=== PATIENT | female | born 1990 | race Caucasian/White ===

== ENCOUNTER 2025-02-09 19:41 | Emergency (ER) | payer SELFPAY ==
[~2025-02-09] VITALS: Ht 160 cm; Wt 63.0 kg
--- NOTE | 2025-02-09 19:53 | ERN ---
ED Note History of Present Illness Stated Complaint: C/O ABD PAIN WITH N X V, DIARRHEA,DIZZINESS Chief Complaint: Abdominal Pain Time Seen by MD: 19:45 Time Seen by Midlevel: 19:45 Dictation: The patient is a 34-year-old female with a history of cholecystectomy, who presents to the emergency department with complaints of epigastric abdominal pain onset 2:00 p.m. associated with nausea , nonbloody vomiting nonbloody diarrhea. Patient denies any fevers. Allergies: Coded Allergies: cefaclor (Unverified Allergy, Unknown, 02/09/25) Past Medical History Past Medical History: No Pertinent History Surgical History: Cholecystectomy, LMP: Dec 27, 2024 RN Note Reviewed/Agreed w/PFSH: Yes Review of System Dictation Constitutional: Negative for fever,chills, and weight loss Eyes: Negative for injury, pain,redness, and discharge ENT: Negative for injury,pain or swelling Cardiovascular: Negative for chest pain, palpitations, and edema Respiratory: Negative for shortness of breath, cough, and wheezing, Abdomen/GI: Negative for constipation positive for abdominal pain, nausea, vomiting, diarrhea Back: Negative for injury and pain : Negative for injury, bleeding and discharge MS/Extremity: Negative for injury and deformity Skin: Negative for rash, and discoloration Neuro: Negative for headache, weakness, numbness, tingling, and seizure Psych: Negative for suicide ideation, homicidal ideation, and hallucinations Initial Vital Sign VS Vital Signs Date Time Temp Pulse Resp B/P (MAP) Pulse Ox O2 Delivery O2 Flow Rate FiO2 02/09/25 19:44 98.2 79 20 117/84 97 Room Air Physical Exam Dictation Vital Signs reviewed General Appearance: Alert, oriented x 3, no acute distress, well developed, nourished. Head and Face: non-traumatic. Eyes: PERRL, pink conjunctivas, eyelid no trauma, anterior chamber with arcus senilis. Ears: Pinnas intact and no signs of trauma or erythema ear canals clear and no discharge TM no erythema Nose: No discharge, no bleeding. Oropharynx: Mouth normal, tongue pink. pharynx clear,no erythema, tonsils no exudates, no abscesses noted, mucous membrane moist Neck: Supple, non-tender, no thyromegaly, no masses, no JVD, no bruits Breast:Deferred Chest:No tenderness, no crepitus, no paradoxical movement, no retractions Lungs:Clear, well-ventilated, symmetric, no rales, no wheezing, no rhonchi, no stridor, good breath sounds bilaterally Heart: Regular rate, regular rhythm, no murmur, no gallops Vascular: no peripheral edema, Abdomen: Soft, positive bowel sounds, nondistended, no guarding, Epigastric tenderness,, no rebound, no masses no hepatomegaly, no splenomegaly, no Ortiz's sign, no hernias. Rectal: Deferred Genital: Deferred Neurological: Normal speech, motor function intact, sensory function intact Musculoskeletal: Neck nontender, full range of motion, back nontender, full range of motion, Extremities: nontender, full range of motion Skin: Color pink, dry, no turgor, no rash, no lacerations, no abrasions, no contusions. Lymphatic: Deferred Results (Laboratory/Radiology) Laboratory/Radiology Laboratory Tests Test 02/09/25 20:02 02/09/25 20:17 Urine Color YELLOW (YELLOW) Urine Appearance CLEAR (CLEAR) Urine pH 6.5 (5.0-8.0) Urine Specific [place] 1.029 (1.001-1.031) Urine Protein 50 mg/dL (NEGATIVE) H Urine Glucose (UA) NEGATIVE mg/dL (NEGATIVE) Urine Ketones 10 mg/dL (NEGATIVE) H Urine Occult Blood NEGATIVE (NEGATIVE) Urine Nitrate NEGATIVE (NEGATIVE) Urine Bilirubin NEGATIVE mg/dL (NEGATIVE) Urine Urobilinogen 0.2 mg/dL (0.2-1.0) Urine Leukocyte Esterase NEGATIVE Nikki/uL Urine RBC 0-1 /HPF (0-1) Urine WBC 2-5 /HPF (0-1) H Urine Squamous Epithelial Cells FEW /HPF (0-2) Urine Bacteria RARE /HPF (None Seen) Urine HCG, Qualitative NEGATIVE (NEGATIVE) White Blood Count 9.4 K/uL (4.8-10.8) Red Blood Count 5.76 MIL/uL (4.00-5.50) H Hemoglobin 17.1 g/dL (12.0-16.0) H Hematocrit 49.9 % (36-48) H Mean Corpuscular Volume 86.6 fL (79-99) Mean Corpuscular Hemoglobin 29.7 pg (27.0-33.0) Mean Corpuscular Hemoglobin Concent 34.3 g/dL (32.0-36.0) Red Cell Distribution Width 12.7 % (11.0-15.5) Platelet Count 203 K/uL (130-400) Mean Platelet Volume 10.6 fL (7.5-10.5) H Immature Granulocyte % (Auto) 0.3 % (0-1) Neutrophils (%) (Auto) 77.1 % (40.0-77.0) H Lymphocytes (%) (Auto) 17.2 % (21.0-51.0) L Monocytes (%) (Auto) 4.7 % (3.0-13.0) Eosinophils (%) (Auto) 0.5 % (0.0-8.0) Basophils (%) (Auto) 0.2 % (0.0-5.0) Neutrophils # (Auto) 7.2 K/uL (1.8-7.7) Lymphocytes # (Auto) 1.6 K/uL (1.0-4.8) Monocytes # (Auto) 0.4 K/uL (0.1-1.0) Eosinophils # (Auto) 0.05 K/uL (0.00-0.70) Basophils # (Auto) 0.02 K/uL (0.00-0.20) Absolute Immature Granulocyte (auto 0.03 K/uL (0-1) Nucleated Red Blood Cells 0.0 % (0.0-0.19) Sodium Level 139 mmol/L (136-145) Potassium Level 3.3 mmol/L (3.5-5.1) L Chloride Level 102 mmol/L (101-111) Carbon Dioxide Level 25 mmol/L (21-32) Blood Urea Nitrogen 11 mg/dL (7-18) Creatinine 0.7 mg/dL (0.5-1.0) Glomerular Filtration Rate Calc 118 mL/min (>90) Random Glucose 102 mg/dL (70-105) Total Calcium 9.5 mg/dL (8.5-10.1) Total Bilirubin 1.1 mg/dL (0.2-1.0) H Direct Bilirubin 0.2 mg/dL (0.0-0.3) Aspartate Amino Transf (AST/SGOT) 20 U/L (10-37) Alanine Aminotransferase (ALT/SGPT) 32 U/L (12-78) Alkaline Phosphatase 59 U/L (50-136) Total Protein 8.6 g/dL (6.0-8.3) H Albumin 4.5 g/dL (3.5-5.0) Lipase 61 U/L (16-77) REASON: epigastric pain ORDERING PHYSICIAN: RAJWINDER LEE PROCEDURE: ABD PEL W - CT ABDOMEN/PELVIS W/CONTRAST CT ABDOMEN WITH CONTRAST. CT PELVIS WITH CONTRAST INDICATION: Epigastric abdominal pain TECHNIQUE: Routine transaxial images using 5 mm slice thickness were obtained after the intravenous infusion of 75 mL of Omnipaque 350 without adverse effects. Oral contrast was not administered. Rectal contrast was not administered. Coronal and sagittal reformatted images acquired for interpretation. CT was performed with one or more of the following dose reduction techniques: Automated exposure control, adjustment of the mA and/or kV according to patient size, or use of iterative reconstruction technique. COMPARISON: None FINDINGS: ABDOMEN: Heart size is normal. Visible lung bases are clear. The liver is normal in size and smooth in contour without lesions or biliary duct dilation. The spleen is normal in size without lesions. The gallbladder his absent. The pancreas appears normal without pancreatic duct dilation. The adrenal glands appear normal. Both kidneys appear unremarkable. Cortical nephrograms are symmetric and normal in appearance bilaterally. No evidence for intra-abdominal free air or organized fluid collection. No retrocrural, intraabdominal, or retroperitoneal lymphadenopathy identified. No aortic aneurysmal dilation or dissection identified. PELVIS: No evidence for free air or organized pelvic fluid collection. No significant pelvic adenopathy detected. Extensive small and large bowel liquid contents. Terminal ileum appears normal. The appendix appears normal. The urinary bladder appears unremarkable. Visible osseous structures are intact. IMPRESSION: Probable mild enterocolitis with extensive small and large bowel liquid contents. Labs Reviewed?: Yes ED Course ED Course Orders Procedure Category Date Status Time Cbc With Differential LAB 02/09/25 Complete 19:49 ,Urine Test LAB 02/09/25 Complete 19:49 Urinalysis Profile LAB 02/09/25 Complete 19:49 0.9%Nacl 1000ml (Ns PHA 02/09/25 Complete 1000ml) 20:00 Morphine 4mg Syg PHA 02/09/25 Complete (Morphine 4mg Syg) 20:00 Ondansetron 4mg Inj PHA 02/09/25 Complete (Zofran 4mg Inj) 20:00 Pantoprazole 40mg Inj PHA 02/09/25 Complete (Protonix 40mg Inj 20:00 Lipase LAB 02/09/25 Complete 19:49 Basic Metabolic Panel LAB 02/09/25 Complete 19:49 Hepatic Function Panel LAB 02/09/25 Complete 19:49 Hydromorphone 0.5mg PHA 02/09/25 Complete Syg (Dilaudid 0.5mg 21:00 Ct Abdomen/Pelvis CT 02/09/25 Resulted W/Contrast 20:41 Iohexol (Omnipaque) PHA 02/09/25 Complete 21:03 Dicyclomine Hcl PHA 02/09/25 Complete (Bentyl 20mg Inj) 21:30 Potassium Chloride PHA 02/09/25 Transmitted 10meq Sr (K-Dur 10meq 22:00 Current Medications Medications (Trade) Dose Ordered Sig/Jovanni Route PRN Reason Start Time Stop Time Status Last Admin Dose Admin Dicyclomine HCl (Bentyl 20mg Inj) 20 mg ONCE ONCE IM 02/09/25 21:30 02/09/25 21:31 DC Hydromorphone HCl (DiLAUDid 0.5MG INJ) 0.5 mg ONCE ONCE IVP 02/09/25 21:00 02/09/25 21:01 DC 02/09/25 20:50 Iohexol (Omnipaque) 75 ml STK-MED ONCE IV 02/09/25 21:03 02/09/25 21:03 DC Morphine Sulfate (morPHINE 4MG SYG) 4 mg ONCE ONCE IVP 02/09/25 20:00 02/09/25 20:01 DC 02/09/25 20:20 Ondansetron HCl (zoFRAN 4MG INJ) 4 mg ONCE ONCE IVP 02/09/25 20:00 02/09/25 20:01 DC 02/09/25 20:20 Pantoprazole Sodium (PROTonix 40MG INJ) 40 mg ONCE ONCE IVP 02/09/25 20:00 02/09/25 20:01 DC 02/09/25 20:20 Sodium Chloride 1,000 ml @ 0 mls/hr ONCE ONCE IV 02/09/25 20:00 02/09/25 20:01 DC 02/09/25 20:21 Vital Signs Date Time Temp Pulse Resp B/P (MAP) Pulse Ox O2 Delivery O2 Flow Rate FiO2 02/09/25 19:44 98.2 79 20 117/84 97 Room Air Medical Decision Making MDM The patient is a 34-year-old female with a history of cholecystectomy, who presents to the emergency department with complaints of epigastric abdominal pain onset 2:00 p.m. associated with nausea , nonbloody vomiting nonbloody diarrhea. Patient denies any fevers. CBC showed no leukocytosis, no anemia, chemistry showed mild hypokalemia, negative lipase, negative liver enzymes. Urinalysis unremarkable. CT abdomen showed mild enterocolitis. Patient reports improving in pain with medications administration. Reports she feels better. Patient no longer vomiting. No acute distress, stable vital signs we will be discharged and follow up with PCP. Differential diagnosis: Gastroenteritis, gastritis, bowel obstruction Need for hospitalization: Patient does not meet criteria for hospitalization. There are no social concerns with this patient. DX & DISP Disposition: Discharge Departure Impression: Primary Impression: Gastroenteritis Additional Impressions: Nausea and vomiting, Abdominal pain, Diarrhea, Hypokalemia Condition: Stable Scripts Dicyclomine HCl (Bentyl) 20 Mg Tab 1 TAB PO BID for irritable bowel symptoms for 30 Days, #60 TAB 0 Refills Prov: RAJWINDER LEE EXECUTIVE ADVISOR 02/09/25 Pantoprazole Sodium (Pantoprazole Sodium) 20 Mg Tablet.dr 1 TAB PO DAILY for 30 Days, #30 TAB 0 Refills Prov: RAJWINDER LEE EXECUTIVE ADVISOR 02/09/25 Ondansetron (Ondansetron Odt) 4 Mg Tab.rapdis 4 MG PO Q6HPRN PRN for nausea, #16 TAB 0 Refills Prov: RAJWINDER LEE EXECUTIVE ADVISOR 02/09/25 Additional Instructions: Please follow up with the primary doctor in 1-2 days. If symptoms worsen please return to ER. Continue oral hydration at home. FOLLOW-UP WITH PRIMARY CARE PROVIDER IN 1 TO 2 DAYS. TAKE MEDICATIONS DIREC RUBIA HERE IN THE EMERGENCY ROOM. OKAY TO CONTINUE HOME MEDICATIONS UNLESS OTHERWISE DISCUSSED DURING YOUR VISIT IN THE EMERGENCY ROOM TODAY. RETURN TO YOUR NEAREST EMERGENCY ROOM IF SYMPTOMS WORSEN OR IF THERE IS NO IMPROVEMENT. CALL 911 IF YOU NEED IMMEDIATE ASSISTANCE. TAKE TYLENOL OR MOTRIN [id number] NEEDED AND IF NO CONTRAINDICATIONS ARE PRESENT. INCREASE ORAL HYDRATION. A WOUND CULTURE OR URINE CULTURE WAS ORDERED HERE IN THE EMERGENCY ROOM DEPARTMENT PLEASE FOLLOW-UP WITH PRIMARY CARE PROVIDER AND ADVISE THEM TO GET REPEAT PORTS FROM OUR FACILITY. IF YOU HAD ANY YOUNG WRAP/SPLINTS THAT WERE APPLIED HERE, PLEASE DO NOT REMOVE THEM UNTIL YOU SEE YOUR PRIMARY CARE OR SPECIALTY. Referrals: SELF,REFERRAL (PCP) Time of Disposition: 21:41 I have reviewed the case, and I agree with, Diagnosis and Plan RAJWINDER LEE [facility] Feb 09, 2025 19:53
[2025-02-09 20:14] LABS: APPEARANCE,URINE CLEAR (CLEAR); BILIRUBIN,URINE NEGATIVE (NEGATIVE); COLOR,URINE YELLOW (YELLOW); GLUCOSE, URINE (UA) NEGATIVE (NEGATIVE); KETONES,URINE 10 mg/dL (NEGATIVE); LEUKOCYTE ESTERASE ,URINE NEGATIVE Leu/uL (NEGATIVE); NITRATE,URINE NEGATIVE (NEGATIVE); OCCULT BLOOD,URINE NEGATIVE (NEGATIVE); PH,URINE 6.5 (5.0-8.0); PROTEIN,URINE 50 mg/dL (NEGATIVE); UROBILINOGEN,URINE 0.2 mg/dL (0.2-1.0)
[2025-02-09 20:15] LABS: ADD UA MICROSCOPIC YES
[2025-02-09 20:16] LABS: BACTERIA,URINE RARE /HPF (None Seen); HCG,QUALITATIVE URINE NEGATIVE (NEGATIVE); MUCUS,URINE FEW LPF (None Seen); RBC,URINE 0-1 /HPF (0-1); SQUAMOUS EPITHELIAL CELL,UR FEW /HPF (0-2)
[2025-02-09] MEDS: ondanSETRON 4MG INJ IVP ONE (20:20)
[2025-02-09] MEDS: morPHINE 4 MG SYG IVP ONE (20:20)
[2025-02-09] MEDS: PANTOPrazole 40 MG/VIAL IVP ONE (20:20)
[2025-02-09] MEDS: 0.9%NACL 1000ML 1,000 ML IV ONE (20:21)
[2025-02-09 20:30] LABS: BASOPHILS # (AUTO) 0.02 K/uL (0.00-0.20); BASOPHILS % (AUTO) 0.2 % (0.0-5.0); EOSINOPHILS # (AUTO) 0.05 K/uL (0.00-0.70); EOSINOPHILS % (AUTO) 0.5 % (0.0-8.0); HEMATOCRIT 49.9 % (36-48); IMMATURE GRANULOCYTE ABSOLUTE 0.03 K/uL (0-1); LYMPHOCYTES # (AUTO) 1.6 K/uL (1.0-4.8); LYMPHOCYTES % (AUTO) 17.2 % (21.0-51.0); MEAN CORPUSCULAR HEMOGLOBIN 29.7 pg (27.0-33.0); MEAN CORPUSCULAR HGB CONC 34.3 g/dL (32.0-36.0); MEAN CORPUSCULAR VOLUME 86.6 fL (79-99); MONOCYTES # (AUTO) 0.4 K/uL (0.1-1.0); MONOCYTES % (AUTO) 4.7 % (3.0-13.0); NEUTROPHILS # (AUTO) 7.2 K/uL (1.8-7.7); NEUTROPHILS % (AUTO) 77.1 % (40.0-77.0); PLATELET COUNT (AUTO) 203 K/uL (130-400); RED BLOOD CELL COUNT(AUTO) 5.76 MIL/uL (4.00-5.50); RED CELL DISTRIBUTION WIDTH 12.7 % (11.0-15.5); WHITE BLOOD COUNT (AUTO) 9.4 K/uL (4.8-10.8)
[2025-02-09 20:40] LABS: CREATININE 0.7 mg/dL (0.5-1.0); POTASSIUM 3.3 mmol/L (3.5-5.1)
[2025-02-09 20:44] LABS: ALBUMIN 4.5 g/dL (3.5-5.0); BILIRUBIN,DIRECT 0.2 mg/dL (0.0-0.3); BILIRUBIN,TOTAL 1.1 mg/dL (0.2-1.0); TOTAL PROTEIN, SERUM 8.6 g/dL (6.0-8.3)
[2025-02-09] MEDS: hydroMORPHone 0.5 MG SYG (0.5MG/0.5ML) IVP ONE (20:50)
[2025-02-09] MEDS ORDERED: IOHEXOL-350 75 ML VIAL IV ONE (21:03)
--- NOTE | 2025-02-09 21:29 | HMCIMG ---
CT ABDOMEN WITH CONTRAST. CT PELVIS WITH CONTRAST INDICATION: Epigastric abdominal pain TECHNIQUE: Routine transaxial images using 5 mm slice thickness were obtained after the intravenous infusion of 75 mL of Omnipaque 350 without adverse effects. Oral contrast was not administered. Rectal contrast was not administered. Coronal and sagittal reformatted images acquired for interpretation. CT was performed with one or more of the following dose reduction techniques: Automated exposure control, adjustment of the mA and/or kV according to patient size, or use of iterative reconstruction technique. COMPARISON: None FINDINGS: ABDOMEN: Heart size is normal. Visible lung bases are clear. The liver is normal in size and smooth in contour without lesions or biliary duct dilation. The spleen is normal in size without lesions. The gallbladder his absent. The pancreas appears normal without pancreatic duct dilation. The adrenal glands appear normal. Both kidneys appear unremarkable. Cortical nephrograms are symmetric and normal in appearance bilaterally. No evidence for intra-abdominal free air or organized fluid collection. No retrocrural, intraabdominal, or retroperitoneal lymphadenopathy identified. No aortic aneurysmal dilation or dissection identified. PELVIS: No evidence for free air or organized pelvic fluid collection. No significant pelvic adenopathy detected. Extensive small and large bowel liquid contents. Terminal ileum appears normal. The appendix appears normal. The urinary bladder appears unremarkable. Visible osseous structures are intact. IMPRESSION: Probable mild enterocolitis with extensive small and large bowel liquid contents.
[2025-02-09] MEDS: DICYCLOMINE 20MG (10MG/ML) AMP IM ONE (21:39)
[2025-02-09] MEDS ORDERED: DICY20TA2 PO (21:41)
[2025-02-09] MEDS ORDERED: ONDA-243 PO (21:41)
[2025-02-09] MEDS ORDERED: PANT20TA18 PO (21:41)
[2025-02-09] MEDS: PoTASSium chloRIDE 10MEQ SR 10 MEQ/TAB TAB.SR.24H PO ONE (21:48)
[2025-02-09 21:55] VITALS: BP 111/80; PULSE 80; RESP 16; TEMP 97.7; O2SAT 100
== END 2025-02-09 22:00 | disposition home or self-care (01) ==
LOC: EDH 19:41
DX: K52.9 Noninfective gastroenteritis and colitis, unspecified (principal); E87.6 Hypokalemia; Z88.1 Allergy status to other antibiotic agents; Z90.49 Acquired absence of other specified parts of digestive tract; Z98.890 Other specified postprocedural states
CPT/HCPCS: 99285; 74177; 96374; 96375; 96361; 80076; 80048; 83690; 85025; 81001; 81025; 36415; 96372; J1171; J7030; J2405; J2270; J2470; J0500; Q9967